=== PATIENT | male | born 1990 | race Caucasian/White ===

== ENCOUNTER 2018-07-15 17:10 | Inpatient (IN) | payer MEDICAID, SELFPAY ==
[2018-07-15 17:11] VITALS: BP 134/82; PULSE 115; RESP 16; TEMP 36.4; O2SAT 100; BMI 23.5
[2018-07-15 19:36] LABS: Absolute Lymphocyte Count 2.15 X10^3/ul (0.83-4.51); Absolute Neutrophil Count 8.3 X10^3/uL (2.0-7.7); Basophil# 0.01 X10^3/uL; Basophil% 0.1 % (0-1); Eosinophil# 0.01 X10^3/uL; Eosinophils% 0.1 % (0-5); Hematocrit 34.1 % (40-54); Hemoglobin 11.4 g/dl (13.0-16.5); Lymphocyte # 2.15 X10^3/ul (4.0); Lymphocyte % 18.1 % (19-41); Mean Corp Hgb Conc 33.4 g/gl (32-36); Mean Corpuscular Hgb 27.1 pg (27.0-32.0); Mean Corpuscular Volume 81.2 fL (80-94); Mean Platelet Vol. 8.5 fl (6.2-12.0); Monocyte# 1.34 X10^3/uL; Monocyte% 11.3 % (0-10); Neutrophil # 8.33 X10^3/uL (2.7-7.7); Neutrophil % 70.2 % (47-70); POSITIVE COUNT NO; POSITIVE DIFFERENTIAL NO; POSITIVE MORPHOLOGY NO; Platelet Count 244 K/mm3 (150-450); RBC Distribution Width CV 13.6 % (11.6-14.6); RBC Distribution Width SD 39.9 fl (35.1-43.9); White Blood Count 11.9 K/mm3 (4.4-11.0)
[2018-07-15 19:53] LABS: Amphetamine Urine VISTA NEGATIVE (<1000 ng/mL); Barbiturate Urine VISTA NEGATIVE (< 200 ng/mL); Benzodiazepine Urine VISTA NEGATIVE (< 200 ng/mL); Cocaine Urine VISTA NEGATIVE (< 300 ng/mL); Ecstacy Urine VISTA POSITIVE (< 500 ng/mL); Methadone Urine VISTA NEGATIVE (< 300 ng/mL); PCP Urine VISTA NEGATIVE (< 25 ng/mL); THC Urine VISTA NEGATIVE (< 50 ng/mL); Vista UDS pH Range 6
[2018-07-15 20:00] LABS: Alcohol, Blood (Medical)-Serum < 3.0 mg/dL
[2018-07-15 20:08] VITALS: BP 114/73; PULSE 94; RESP 18; O2SAT 99
--- NOTE | 2018-07-15 20:09 | NURSING ---
LAB CALLED TO REQUEST THAT THEY TRY TO DRAW THE CHEMISTRY TUBE ON THE PATIENT WE WERE UNABLE TO GET IT. DR. RAMÍREZ IS AT THE BEDSIDE DOING THE NEW VISION SURVEY. HIS PARENTS ARE PRESENT.
--- NOTE | 2018-07-15 20:27 | ED.VISSUMM ---
- ER Visit Summary Date of Service: 07/15/18 Chief Complaint: Heroin withdrawal History of Present Illness: The patient is a 27 M presenting with heroin withdrawal. Patient had his last use of heroin 24 hours ago. He typically uses 1 g per day. He has been using for the past 3 months. Prior to that he was detoxed at [facility]. He has a history of heroin and opiate pill use. He states that he is using heroin only now. He denies alcohol use. Denies medical problems. He complains of vomiting, diarrhea, restless legs. Physical Examination: Vitals are stable. Patient is afebrile. Alert no acute distress. HEENT exam dry mucous membranes Neck is supple. Lungs are clear and equal bilaterally. Heart is regular rate and rhythm. Abdomen is soft nontender nondistended. No guarding or rebound Extremities are unremarkable. Skin is warm and dry. No focal neurologic deficit. Remainder of exam is unremarkable. Emergency Department Course and Treatment: Patient is given IV fluids, Zofran. His CIWA-B score is 54. Will discuss with the hospitalist for observation. Disposition: Admission Impression: Heroin withdrawal This note was generated with [employer] dictation software. It may contain incorrect words, spelling, and punctuation that were not noted in review of the chart prior to signing ED Disposition - Plan for ED Patient: Chief Complaint: Substance Abuse Referrals: Rosa Maria Glass,Out of [Primary Care Provider] -
[2018-07-15 20:29] VITALS: BP 114/73; PULSE 94; RESP 18; O2SAT 99
--- NOTE | 2018-07-15 20:31 | HP.PCM_ITS ---
Problem List (1) Heroin withdrawal Status: Acute History of Present Illness Date of Admission: 07/15/18 Chief Complaint: Heroine withdrawal The patient is a 27 year old M with a significant history of depression, anxiety , and heroine dependence who underwent detoxification at 3 months ago presents with symptoms of heroine withdrawal that started on the same day of admission. His withdrawal symptoms include chills, vomiting, diarrhea, abdominal cramps, restless legs, anxiety, clamminess, insomnia and irritability Also patient smokes 2 packs tobacco about half pack per day for many years. He denied use of other substances however methamphetamine was found in his drug screen. He believes methamphetamine might have been mixed with his drug of choice, heroin. Past Medical History Allergies No Known Allergies Allergy (Verified 07/15/18 17:11) Home Medications: Ambulatory Orders Medication Instructions Recorded Bupropion HCl [Bupropion HCl Sr] 150 mg PO DAILY 07/15/18 Duloxetine HCl 60 mg PO DAILY 07/15/18 Gabapentin [Neurontin] 600 mg PO BIDCM 07/15/18 Ibuprofen 600 mg PO Q8H PRN PRN 07/15/18 Methylprednisolone [Medrol] See Taper PO DAILY 07/15/18 Surgical History: no surgical history Lives: With Family Smoking Status: Current every day smoker Tobacco Use: Cigarettes - *Family History Maternal History Items: No pertinent history Paternal History Items: No pertinent history Review of Systems Constitutional: Denies: Chills, Fever, Weight Change Eyes: Denies: Blurred vision, Pain HEENT: Reports: Head Aches. Denies: Sinus Congestion, Sinus Drainage Cardiovascular: Denies: Chest Pain, Palpitations Respiratory: Denies: Cough, Shortness of breath at rest, Sputum production Gastrointestinal: Reports: Abdominal Pain, Diarrhea, Vomiting Genitourinary: Denies: Dysuria Musculoskeletal: Denies: Joint Pain, Joint Tenderness Skin: Denies: Rash, Wounds Neurological: Denies: Numbness, Tingling, Focal weakness Psychiatric: Reports: Anxiety, Depression. Denies: Homicidal Ideations, Suicidal Ideations Hematologic/ Lymphatic: Denies: Easy Bruising, Easy Bleeding VTE Information - Inpt Only VTE Present on Admission: No VTE Mechan Device Prophylaxis: None VTE Pharm Prophylaxis ordered?: No Patient Problems: Active and Suspected Problems Heroin withdrawal (Acute) - Physical Exam General: Alert, Oriented x3, Cooperative HEENT: Atraumatic, PERRLA, EOMI, Normocephalic Neck: Supple, No JVD, Negative Carotid Bruits Lungs: Clear to auscultation, Normal air movement Cardiovascular: Regular rate, No murmurs Abdomen: Bowel Sounds Present, Soft, Non Tender Extremities: No clubbing Skin: No rashes, No breakdown Musculoskeletal: No Tenderness to Palpation of Joints or Extremities Neurological: Cranial nerves II-XII grossly intact Psych/Mental Status: Anxious Vital Signs Temp Pulse Resp BP Pulse Ox 97.6 F L 94 18 114/73 99 07/15/18 17:11 07/15/18 20:29 07/15/18 20:29 07/15/18 20:29 07/15/18 20:29 Oxygen Delivery Method Room Air Weight: 68.039 kg Body Mass Index (BMI) 23.5 Laboratory Tests Past 24 Hrs 07/15/18 07/15/18 07/15/18 19:15 19:29 19:29 WBC 11.9 H RBC 4.20 L Hgb 11.4 L Hct 34.1 L MCV 81.2 MCH 27.1 MCHC 33.4 RDW 13.6 RDW Differential 39.9 Plt Count 244 MPV 8.5 Immature Gran % (Auto) 0.200 Neut % (Auto) 70.2 H Lymph % (Auto) 18.1 L [place] % (Auto) 11.3 H Eos % (Auto) 0.1 Baso % (Auto) 0.1 Absolute Neuts (auto) 8.3 H Absolute Lymphs (auto) 2.15 Total Counted Not Reportable Urine Opiates Screen NEGATIVE Urine Methadone Screen NEGATIVE Ur Barbiturates Screen NEGATIVE Ur Phencyclidine Scrn NEGATIVE Ur Amphetamines Screen NEGATIVE U Methamphetamin-MDMA POSITIVE H U Benzodiazepines Scrn NEGATIVE Urine Cocaine Screen NEGATIVE U Cannabinoids Screen NEGATIVE Ur Drug Screen Comment Ethyl Alcohol < 3.0 Assessment/Plan All Active Problems Heroin withdrawal (Acute) The patient is a 27 year old M with a significant history of tobacco abuse, depression, anxiety, and heroine dependence who underwent detoxification 3 months ago presents with symptoms of heroine withdrawal. Polysubstance dependence and withdrawal Patient's smokes tobacco; uses heroine; and methamphetamine was found on drug screen Patient was counseled See below Heroine dependence with withdrawal CIWA screened for heroine at emergency department showed severe withdrawal Narcotic withdrawal protocol with Bentyl, methocarbamol, Mirapex, hydroxyzine and buprenorphine. Melatonin for insomnia. Imodium for diarrhea. Tobacco abuse Nicotine patch ordered. Costochondritis Patient reported that he was diagnosed with costal chondritis 2 days ago and was started on Medrol Dosepak and as needed ibuprofen A Medrol Dosepak and as needed ibuprofen continued. Continue Medrol dose started outpatient. Depression and anxiety Home Cymbalta and Wellbutrin continued DVT prophylaxis Low risk. Ambulate Code Visit Inpatient E&M: 41263 Init Hosp L3
[2018-07-15] MEDS: Ondansetron 4 MG/2 ML Vial IV (21:16)
[2018-07-15] MEDS: 0.9% Normal Saline 1,000 ML 999 ML IV (21:16)
[2018-07-15 21:21] LABS: Anion Gap 9 (5-15); BUN 16 mg/dL (7-18); BUN/Creat Ratio 19.3 RATIO (10-20); Calcium,Total 9.2 mg/dL (8.5-10.1); Chloride 103 mmol/L (98-107); Creatinine, Serum 0.83 mg/dL (0.70-1.30); EST Glomerular Filtration Rate 120 mL/min (>60); Est Glom Filt Rate - Afr Amer 145 mL/min (>60); Glucose 93 mg/dL (74-106); Potassium 4.8 mmol/L (3.5-5.1); Sodium Level 137 mmol/L (136-145)
[2018-07-15 22:05] VITALS: BMI 23.0
[2018-07-15 22:08] VITALS: BMI 23.0
[2018-07-15 22:14] VITALS: BP 125/76; PULSE 56; RESP 16; TEMP 36.8
[2018-07-15] MEDS: Buprenorphine HCl 2 MG TAB.SUBL SL (22:32)
[2018-07-15] MEDS: MethylPREDNISolone DosePak 4 MG BOX PO (22:32)
[2018-07-15] MEDS: Gabapentin 100 MG Capsule 200 MG PO (22:35)
[2018-07-15] MEDS: hydrOXYzine PAM 25 MG Capsule 50 MG PO (22:35)
[2018-07-15] MEDS: MELATONIN 3 MG TABLET PO (22:35)
[2018-07-15] MEDS: Pramipexole Di-HCl 0.25 MG Tablet PO (22:35)
[2018-07-15 22:46] VITALS: O2SAT 95
[2018-07-16] VITALS (8 sets, daily range): BP systolic 97–125; BP diastolic 65–84; PULSE 64–96; RESP 16–18; TEMP 36.6–37.3; O2SAT 98–100
[2018-07-16] MEDS: Loperamide 2 MG Capsule 4 MG PO (00:20)
[2018-07-16] MEDS: Buprenorphine HCl 2 MG TAB.SUBL SL ×3 (06:18→22:05)
[2018-07-16] MEDS: hydrOXYzine PAM 25 MG Capsule 50 MG PO ×2 (06:18→14:10)
[2018-07-16] MEDS: Methocarbamol 750 MG Tablet PO ×2 (06:18→18:16)
[2018-07-16 06:30] LABS: Absolute Neutrophil Count 6.4 X10^3/uL (2.0-7.7); Basophil# 0.01 X10^3/uL; Basophil% 0.1 % (0-1); Hematocrit 38.2 % (40-54); Hemoglobin 12.7 g/dl (13.0-16.5); Lymphocyte % 16.4 % (19-41); Mean Corp Hgb Conc 33.2 g/gl (32-36); Mean Corpuscular Hgb 27.1 pg (27.0-32.0); Mean Corpuscular Volume 81.4 fL (80-94); Mean Platelet Vol. 8.6 fl (6.2-12.0); Monocyte# 0.71 X10^3/uL; Monocyte% 8.3 % (0-10); Neutrophil % 75.1 % (47-70); Platelet Count 224 K/mm3 (150-450); RBC Distribution Width CV 13.8 % (11.6-14.6); Red Blood Count 4.69 M/mm3 (4.6-6.2); White Blood Count 8.5 K/mm3 (4.4-11.0)
[2018-07-16 06:31] LABS: POSITIVE COUNT NO; POSITIVE DIFFERENTIAL NO; POSITIVE MORPHOLOGY NO
[2018-07-16 07:04] LABS: Anion Gap 8 (5-15); BUN 13 mg/dL (7-18); Calcium,Total 8.8 mg/dL (8.5-10.1); Chloride 107 mmol/L (98-107); Creatinine, Serum 0.68 mg/dL (0.70-1.30); EST Glomerular Filtration Rate 149 mL/min (>60); Est Glom Filt Rate - Afr Amer 181 mL/min (>60); Estimated Creatinine Clearance 155.26 ml/min; Glucose 118 mg/dL (74-106); Potassium 4.2 mmol/L (3.5-5.1); Sodium Level 138 mmol/L (136-145)
[2018-07-16] MEDS: Gabapentin 100 MG Capsule 200 MG PO ×2 (08:43→16:38)
[2018-07-16] MEDS: MethylPREDNISolone DosePak 4 MG BOX PO ×4 (08:44→22:08)
[2018-07-16] MEDS: DULoxetine Hcl 60 MG Capsule PO (08:45)
[2018-07-16] MEDS: buPROPion (SR) 150 MG Tablet.SA PO (08:46)
[2018-07-16] MEDS: Ibuprofen 600 MG Tablet PO (10:13)
[2018-07-16] MEDS: Loperamide 2 MG Capsule PO (10:13)
[2018-07-16] MEDS: Pramipexole Di-HCl 0.25 MG Tablet PO (10:13)
--- NOTE | 2018-07-16 10:39 | CASEMGMT ---
Social work Note Charge Nurse Ellie updated this worker that ADINA is going to see pt. Berna Asencio PARKS RECREATION DIRECTOR, SET UP [employer]
--- NOTE | 2018-07-16 10:48 | PCM.PN.HOSP ---
Patient Problems: Active and Suspected Problems Heroin withdrawal (Acute) Subjective: still with chest pain. Admits to daily IV heroin abuse. Denies any intentional methamphetamine abuse. Still with chest pain. Vitals/I&O's: Vital Signs Temp Pulse Resp BP Pulse Ox 36.8 C 96 16 109/70 100 07/16/18 10:03 07/16/18 10:14 07/16/18 10:14 07/16/18 10:03 07/16/18 10:03 Oxygen Delivery Method Room Air Weight: 66.7 kg Body Mass Index (BMI) 23.0 General: Alert, No apparent distress HEENT: Atraumatic, Normocephalic Oral: Moist Mucosa, No Gingival or Mucosal Lesions/ Ulcerations Neck: No Nodes, Thyroid Normal Size and Texture Lungs: Clear to auscultation, Normal air movement, No rhonchi, No wheeze Cardiovascular: Regular rate, Regular Rhythm, Normal S1, Normal S2, No murmurs Abdomen: Bowel Sounds Present, Soft, Non Tender, Non-Distended, No Hepato-splenomegaly Extremities: No edema, No Calf Tenderness Psych/Mental Status: Normal Affect, Appropriate Microbiology Past 72 Hours 07/16/18 07:20 Stool C. difficile DNA Amplification - Final Laboratory Results 07/16/18 05:50: WBC 8.5, RBC 4.69, Hgb 12.7 L, Hct 38.2 L, MCV 81.4, MCH 27.1, MCHC 33.2, RDW 13.8, RDW Differential 41.0, Plt Count 224, MPV 8.6, Immature Gran % (Auto) 0.100, Neut % (Auto) 75.1 H, Lymph % (Auto) 16.4 L, [place] % (Auto) 8.3, Eos % (Auto) 0.0, Baso % (Auto) 0.1, Absolute Neuts (auto) 6.4, Absolute Lymphs (auto) 1.40, Total Counted Not Reportable 07/16/18 05:50: Sodium 138, Potassium 4.2, Chloride 107, Carbon Dioxide 23.0, Anion Gap 8, BUN 13, Creatinine 0.68 L, Estim Creat Clear Calc 155.26, Est GFR (MDRD) Af Amer 181, Est GFR (MDRD) Non-Af 149, BUN/Creatinine Ratio 19.0, Glucose 118 H, Calcium 8.8 Current Medications Bisacodyl (Dulcolax) 5 mg PO DAILY PRN PRN PRN Reason: Constipation Buprenorphine HCl (Buprenorphine Hcl) 4 mg SL Q8H [facility] PRN Reason: Taper Stop: 07/19/18 01:59 Last Admin: 07/16/18 06:18 Dose: 4 mg Bupropion HCl (Wellbutrin Sr (150mg Tablets)) 150 mg PO DAILY [facility] Last Admin: 07/16/18 08:46 Dose: 150 mg Dicyclomine HCl (Bentyl) 20 mg PO Q6H PRN PRN PRN Reason: Abdomnial Discomfort Duloxetine HCl (Cymbalta) 60 mg PO DAILY [facility] Last Admin: 07/16/18 08:45 Dose: 60 mg [facility] Last Admin: 07/16/18 08:43 Dose: 200 mg Hydroxyzine Pamoate (Vistaril Pamoate Capsule) 50 mg PO Q6H PRN PRN PRN Reason: Mild Anxiety Last Admin: 07/16/18 06:18 Dose: 50 mg Ibuprofen (Motrin) 600 mg PO Q6H PRN PRN PRN Reason: pain Last Admin: 07/16/18 10:13 Dose: 600 mg Loperamide HCl (Imodium) 2 mg PO PRN PRN PRN Reason: loose bowel movement Last Admin: 07/16/18 10:13 Dose: 2 mg Magnesium Hydroxide (Milk Of Magnesia) 30 ml PO DAILY PRN PRN PRN Reason: Constipation Melatonin (Melatonin) 3 mg PO QHS [facility] Last Admin: 07/15/18 22:35 Dose: 3 mg Methocarbamol (Methocarbamol) 750 mg PO Q6H PRN PRN PRN Reason: Muscle Aches Last Admin: 07/16/18 06:18 Dose: 750 mg Methylprednisolone (Medrol Dosepak) 4 mg PO 0800,1200,1700,2200 [facility] PRN Reason: Taper Stop: 07/19/18 08:59 Last Admin: 07/16/18 08:44 Dose: 4 mg Nicotine (Nicoderm Cq (Pbkc)) 14 mg TRANSDERM. DAILY [facility] Last Admin: 07/16/18 08:46 Dose: 14 mg Nutritional Formula (Lactose Free) (Ensure Enlive) 120 ml PO 4X/DAY [facility] Last Admin: 07/16/18 08:49 Dose: 120 ml Pramipexole Dihydrochloride (Mirapex) 0.25 mg PO Q12H PRN PRN PRN Reason: Restless Legs Last Admin: 07/16/18 10:13 Dose: 0.25 mg Medical Necessity - Tobacco Use Smoking Status: Current every day smoker Tobacco Use: Cigarettes Assessment/Plan All Active Problems Heroin withdrawal (Acute) 1. Acute heroin withdrawal continue with Subutex taper continue with other PRN medications for other somatic complaints. 2. costochondritis Ibuprofen 800mg TID for 5 days. Will add PPI for GI protection. 3. Depression takes Wellbutrin, which is likely why his screen is positive for methamphetamines/MDMA (i.e., false positive) 4. Chronic back pain Pt states he is prescribed gabapentin for back pain Reviewed [facility], and he [place] Gabapentin is known to accentuate the high from opiates. I called Dr. Vergara's office as a courtesy, but was kept on hold. Code Visit Inpatient E&M: 82674 Subs Hosp L2
--- NOTE | 2018-07-16 10:53 | PN_ITS ---
Patient Problems: Active and Suspected Problems Heroin withdrawal (Acute) Subjective: still with chest pain. Admits to daily IV heroin abuse. Denies any intentional methamphetamine abuse. Still with chest pain. Vitals/I&O's: Vital Signs Temp Pulse Resp BP Pulse Ox 36.8 C 96 16 109/70 100 07/16/18 10:03 07/16/18 10:14 07/16/18 10:14 07/16/18 10:03 07/16/18 10:03 Oxygen Delivery Method Room Air Weight: 66.7 kg Body Mass Index (BMI) 23.0 General: Alert, No apparent distress HEENT: Atraumatic, Normocephalic Oral: Moist Mucosa, No Gingival or Mucosal Lesions/ Ulcerations Neck: No Nodes, Thyroid Normal Size and Texture Lungs: Clear to auscultation, Normal air movement, No rhonchi, No wheeze Cardiovascular: Regular rate, Regular Rhythm, Normal S1, Normal S2, No murmurs Abdomen: Bowel Sounds Present, Soft, Non Tender, Non-Distended, No Hepato- splenomegaly Extremities: No edema, No Calf Tenderness Psych/Mental Status: Normal Affect, Appropriate Microbiology Past 72 Hours 07/16/18 07:20 Stool C. difficile DNA Amplification - Final Laboratory Results 07/16/18 05:50: WBC 8.5, RBC 4.69, Hgb 12.7 L, Hct 38.2 L, MCV 81.4, MCH 27.1, MCHC 33.2, RDW 13.8, RDW Differential 41.0, Plt Count 224, MPV 8.6, Immature Gran % (Auto) 0.100, Neut % (Auto) 75.1 H, Lymph % (Auto) 16.4 L, [place] % (Auto) 8.3, Eos % (Auto) 0.0, Baso % (Auto) 0.1, Absolute Neuts (auto) 6.4, Absolute Lymphs (auto) 1.40, Total Counted Not Reportable 07/16/18 05:50: Sodium 138, Potassium 4.2, Chloride 107, Carbon Dioxide 23.0, Anion Gap 8, BUN 13, Creatinine 0.68 L, Estim Creat Clear Calc 155.26, Est GFR ( MDRD) Af Amer 181, Est GFR (MDRD) Non-Af 149, BUN/Creatinine Ratio 19.0, Glucose 118 H, Calcium 8.8 Current Medications Bisacodyl (Dulcolax) 5 mg PO DAILY PRN PRN PRN Reason: Constipation Buprenorphine HCl (Buprenorphine Hcl) 4 mg SL Q8H [facility] PRN Reason: Taper Stop: 07/19/18 01:59 Last Admin: 07/16/18 06:18 Dose: 4 mg Bupropion HCl (Wellbutrin Sr (150mg Tablets)) 150 mg PO DAILY [facility] Last Admin: 07/16/18 08:46 Dose: 150 mg Dicyclomine HCl (Bentyl) 20 mg PO Q6H PRN PRN PRN Reason: Abdomnial Discomfort Duloxetine HCl (Cymbalta) 60 mg PO DAILY [facility] Last Admin: 07/16/18 08:45 Dose: 60 mg [facility]) [facility] Last Admin: 07/16/18 08:43 Dose: 200 mg Hydroxyzine Pamoate (Vistaril Pamoate Capsule) 50 mg PO Q6H PRN PRN PRN Reason: Mild Anxiety Last Admin: 07/16/18 06:18 Dose: 50 mg Ibuprofen (Motrin) 600 mg PO Q6H PRN PRN PRN Reason: pain Last Admin: 07/16/18 10:13 Dose: 600 mg Loperamide HCl (Imodium) 2 mg PO PRN PRN PRN Reason: loose bowel movement Last Admin: 07/16/18 10:13 Dose: 2 mg Magnesium Hydroxide (Milk Of Magnesia) 30 ml PO DAILY PRN PRN PRN Reason: Constipation Melatonin (Melatonin) 3 mg PO QHS [facility] Last Admin: 07/15/18 22:35 Dose: 3 mg Methocarbamol (Methocarbamol) 750 mg PO Q6H PRN PRN PRN Reason: Muscle Aches Last Admin: 07/16/18 06:18 Dose: 750 mg Methylprednisolone (Medrol Dosepak) 4 mg PO 0800,1200,1700,2200 [facility] PRN Reason: Taper Stop: 07/19/18 08:59 Last Admin: 07/16/18 08:44 Dose: 4 mg Nicotine (Nicoderm Cq (Pbkc)) 14 mg TRANSDERM. DAILY [facility] Last Admin: 07/16/18 08:46 Dose: 14 mg Nutritional Formula (Lactose Free) (Ensure Enlive) 120 ml PO 4X/DAY [facility] Last Admin: 07/16/18 08:49 Dose: 120 ml Pramipexole Dihydrochloride (Mirapex) 0.25 mg PO Q12H PRN PRN PRN Reason: Restless Legs Last Admin: 07/16/18 10:13 Dose: 0.25 mg Medical Necessity - Tobacco Use Smoking Status: Current every day smoker Tobacco Use: Cigarettes Assessment/Plan All Active Problems Heroin withdrawal (Acute) 1. Acute heroin withdrawal * continue with Subutex taper * continue with other PRN medications for other somatic complaints. 2. costochondritis * Ibuprofen 800mg TID for 5 days. Will add PPI for GI protection. 3. Depression * takes Wellbutrin, which is likely why his screen is positive for methamphetamines/MDMA (i.e., false positive) 4. Chronic back pain * Pt states he is prescribed gabapentin for back pain * Reviewed [facility], and he receives Rx from Dr. Vergara in [place] * Gabapentin is known to accentuate the high from opiates. * I called Dr. Vergara's office as a courtesy, but was kept on hold. Code Visit Inpatient E&M: 61954 Subs Hosp L2
[2018-07-16] MEDS: Ibuprofen 400 MG Tablet 800 MG PO ×2 (14:10→22:16)
[2018-07-16] MEDS: MELATONIN 3 MG TABLET PO (22:06)
[2018-07-16] MEDS: traZODone 50 MG Tablet PO (22:07)
[2018-07-17] MEDS: Pramipexole Di-HCl 0.25 MG Tablet PO ×2 (05:58→22:21)
[2018-07-17] MEDS: Ibuprofen 400 MG Tablet 800 MG PO ×3 (05:58→22:20)
[2018-07-17] MEDS: Buprenorphine HCl 2 MG TAB.SUBL SL ×2 (05:58→13:17)
[2018-07-17 05:59] VITALS: BP 118/81; PULSE 80; RESP 18; TEMP 36.7
[2018-07-17 07:57] VITALS: O2SAT 97
[2018-07-17 09:13] VITALS: BP 118/64; PULSE 87; RESP 18; TEMP 36.9
[2018-07-17] MEDS: Gabapentin 100 MG Capsule 200 MG PO (09:20)
[2018-07-17] MEDS: hydrOXYzine PAM 25 MG Capsule 50 MG PO ×2 (09:20→19:53)
[2018-07-17] MEDS: buPROPion (SR) 150 MG Tablet.SA PO (09:21)
[2018-07-17] MEDS: DULoxetine Hcl 60 MG Capsule PO (09:21)
[2018-07-17] MEDS: Pantoprazole Sodium 40 MG Tablet PO (09:21)
[2018-07-17] MEDS: MethylPREDNISolone DosePak 4 MG BOX PO ×3 (09:22→22:20)
--- NOTE | 2018-07-17 10:36 | PN_ITS ---
Patient Problems: Active and Suspected Problems Heroin withdrawal (Acute) Subjective: Feeling better. Still with chest pain. Vitals/I&O's: Vital Signs Temp Pulse Resp BP Pulse Ox 36.9 C 87 18 118/64 97 07/17/18 09:13 07/17/18 09:13 07/17/18 09:13 07/17/18 09:13 07/17/18 07:57 Oxygen Delivery Method Room Air Weight: 66.7 kg Body Mass Index (BMI) 23.0 Intake and Output for Last 24 Hours 07/15/18 07/16/18 07/17/18 23:59 23:59 23:59 Intake Total 500 / 500 Balance 500 / 500 General: Alert, No apparent distress HEENT: Atraumatic, Normocephalic Oral: Moist Mucosa, No Gingival or Mucosal Lesions/ Ulcerations Neck: No Nodes, Thyroid Normal Size and Texture Lungs: Clear to auscultation, Normal air movement, No rhonchi, No wheeze Cardiovascular: Regular rate, Regular Rhythm, Normal S1, Normal S2, No murmurs Abdomen: Bowel Sounds Present, Soft, Non Tender, Non-Distended, No Hepato- splenomegaly Extremities: No edema, No Calf Tenderness Skin: No rashes, No breakdown Psych/Mental Status: Normal Affect, Appropriate Microbiology Past 72 Hours 07/16/18 07:20 Stool C. difficile DNA Amplification - Final Current Medications Bisacodyl (Dulcolax) 5 mg PO DAILY PRN PRN PRN Reason: Constipation Buprenorphine HCl (Buprenorphine Hcl) 2 mg SL Q8H [facility] PRN Reason: Taper Stop: 07/19/18 01:59 Last Admin: 07/17/18 05:58 Dose: 2 mg Bupropion HCl (Wellbutrin Sr (150mg Tablets)) 150 mg PO DAILY [facility] Last Admin: 07/17/18 09:21 Dose: 150 mg Dicyclomine HCl (Bentyl) 20 mg PO Q6H PRN PRN PRN Reason: Abdomnial Discomfort Duloxetine HCl (Cymbalta) 60 mg PO DAILY [facility] Last Admin: 07/17/18 09:21 Dose: 60 mg [facility]) [facility] Last Admin: 07/17/18 09:20 Dose: 200 mg Hydroxyzine Pamoate (Vistaril Pamoate Capsule) 50 mg PO Q6H PRN PRN PRN Reason: Mild Anxiety Last Admin: 07/17/18 09:20 Dose: 50 mg Ibuprofen (Motrin) 800 mg PO TID [facility] Last Admin: 07/17/18 05:58 Dose: 800 mg Loperamide HCl (Imodium) 2 mg PO PRN PRN PRN Reason: loose bowel movement Last Admin: 07/16/18 10:13 Dose: 2 mg Magnesium Hydroxide (Milk Of Magnesia) 30 ml PO DAILY PRN PRN PRN Reason: Constipation Melatonin (Melatonin) 3 mg PO QHS [facility] Last Admin: 07/16/18 22:06 Dose: 3 mg Methocarbamol (Methocarbamol) 750 mg PO Q6H PRN PRN PRN Reason: Muscle Aches Last Admin: 07/16/18 18:16 Dose: 750 mg Methylprednisolone (Medrol Dosepak) 4 mg PO 0800,1200,2200 [facility] PRN Reason: Taper Stop: 07/19/18 08:59 Last Admin: 07/17/18 09:22 Dose: 4 mg Nicotine (Nicoderm Cq (Pbkc)) 14 mg TRANSDERM. DAILY [facility] Last Admin: 07/17/18 09:20 Dose: 14 mg Nutritional Formula (Lactose Free) (Ensure Enlive) 120 ml PO 4X/DAY [facility] Last Admin: 07/17/18 09:20 Dose: Not Given Pantoprazole Sodium (Protonix) 40 mg PO DAILY [facility] Last Admin: 07/17/18 09:21 Dose: 40 mg Pramipexole Dihydrochloride (Mirapex) 0.25 mg PO Q12H PRN PRN PRN Reason: Restless Legs Last Admin: 07/17/18 05:58 Dose: 0.25 mg Trazodone HCl (Desyrel) 50 mg PO QHS [facility] Last Admin: 07/16/18 22:07 Dose: 50 mg Medical Necessity - Tobacco Use Smoking Status: Current every day smoker Tobacco Use: Cigarettes Assessment/Plan All Active Problems Heroin withdrawal (Acute) 1. Acute heroin withdrawal * continue with Subutex taper * continue with other PRN medications for other somatic complaints. * last day of treatment is 07/18 2. costochondritis * Ibuprofen 800mg TID for 5 days. Will add PPI for GI protection. 3. Depression * takes Wellbutrin, which is likely why his screen is positive for methamphetamines/MDMA (i.e., false positive) 4. Chronic back pain * Pt states he is prescribed gabapentin for back pain * Reviewed [facility], and he receives Rx from Dr. Vergara in [place] * Gabapentin is known to accentuate the high from opiates. * I called Dr. Vergara's office as a courtesy, but was kept on hold. * would advise caution about Gabapentin Code Visit Inpatient E&M: 92525 Subs Hosp L2
[2018-07-17 13:16] VITALS: BP 130/79; PULSE 76; RESP 16; TEMP 36.4
[2018-07-17 19:40] VITALS: BP 124/82; PULSE 85; RESP 16; TEMP 37.1
[2018-07-17] MEDS: MELATONIN 3 MG TABLET PO (22:20)
[2018-07-17] MEDS: traZODone 50 MG Tablet PO (22:21)
[2018-07-18 01:54] VITALS: BP 112/74; PULSE 77; RESP 16; TEMP 36.6
[2018-07-18] MEDS: Buprenorphine HCl 2 MG TAB.SUBL SL (01:57)
[2018-07-18] MEDS: Ibuprofen 400 MG Tablet 800 MG PO (05:14)
[2018-07-18 08:05] VITALS: BP 131/85; PULSE 70; RESP 14; TEMP 36.7
[2018-07-18] MEDS: MethylPREDNISolone DosePak 4 MG BOX PO (08:13)
[2018-07-18] MEDS: buPROPion (SR) 150 MG Tablet.SA PO (08:15)
[2018-07-18] MEDS: hydrOXYzine PAM 25 MG Capsule 50 MG PO (08:15)
[2018-07-18] MEDS: Pantoprazole Sodium 40 MG Tablet PO (08:16)
[2018-07-18] MEDS: DULoxetine Hcl 60 MG Capsule PO (08:16)
--- NOTE | 2018-07-18 09:30 | DCINST_ITS ---
- Discharge Diagnoses Current Active Problems: Current Active and Chronic Problems Heroin withdrawal (Acute) You will use the following diet at home:: No restrictions Your food should be the consistency of: Regular Allergies/Adverse Reactions: Allergies cephalexin [From Keflex] Allergy (Verified 07/15/18 21:18) Hives Medications to take at Discharge Bupropion HCl [Bupropion HCl Sr] 150 mg PO DAILY 07/15/18 Duloxetine HCl 60 mg PO DAILY 07/15/18 Ibuprofen [Motrin] 800 mg PO TID tablet 07/18/18 Omeprazole 20 mg PO DAILY #3 tab 07/18/18 The following prescriptions were given: Omeprazole 20 mg PO DAILY #3 tab. Primary Care Physician: Rosa Maria Doctor,Out of [Primary Care Provider] - Test Results: Test results from this visit will be discussed in further detail at your follow- up appointment, if applicable. Please Follow Up With: inpatient addiction rehab When: 07/20/18 Proposed Discharge Date: 07/18/18
--- NOTE | 2018-07-18 09:30 | PCM.DC.SUM ---
Discharge Date and Diagnosis - Problem List Patient Problems: Active and Suspected Problems Heroin withdrawal (Acute) Date of Admission: 07/15/18 Date of Discharge: 07/18/18 - Primary Discharge Diagnosis Active and Suspected Problems Heroin withdrawal (Acute) Hospital Course and Treatment Operations: None Procedures: None Summary of Care Provided: The patient is a 27 year old M presents voluntarily seeking withdrawal treatment for heroin withdrawal. Patient was started on the Subutex taper as well as additional indications for assistance. Care was also facilitated by Lito Nathan. Lito Nathan was able to contact the facility called [facility] who could not take patient on inpatient basis but currently her capacity and likely would not have any beds open up until the . The plan for the patient to go home for the weekend before going to that facility, presuming they have beds available. They did advise that the patient stop his gabapentin. Patient was not receiving gabapentin for chronic back pain through Dr. Vergara. I did attempt to contact his physician to notify him of the prescribing of the gabapentin for a heroin addict. But I was unable to get a hold of him. Would not advise any additional gabapentin prescription for this patient. Physical exam: Patient is no acute distress and afebrile. Patient did shave his head from yesterday. [] Discharge Diet: No Restrictions Discharge Activity: Return to Normal Activity Home Medications: Medications to take at Discharge Bupropion HCl [Bupropion HCl Sr] 150 mg PO DAILY 07/15/18 Duloxetine HCl 60 mg PO DAILY 07/15/18 Ibuprofen [Motrin] 800 mg PO TID tablet 07/18/18 Omeprazole 20 mg PO DAILY #3 tab 07/18/18 Following Prescrptions Were Given to Patient: Omeprazole 20 mg PO DAILY #3 tab Primary Care Physician: Rosa Maria Doctor,Out of [Primary Care Provider] - Please Follow Up With: inpatient addiction rehab - [facility] When: 07/20/18 Disposition: Home Minutes spent on discharge:: 28 Patient Condition:: Good Medical Necessity - Tobacco Use Smoking Status: Current every day smoker Tobacco Use: Cigarettes Meaningful Use Info Meaningful Use Diagnoses (Choose all that apply): None applicable Code Visit Inpatient E&M: 24232 Disch Hosp
== END 2018-07-18 12:00 | disposition home or self-care (01) | DRG 435 ==
LOC: ED 20:23 → MS3 21:09
PROVIDERS: Admitting Provider Hospitalist; Emergency Provider Emergency Medicine
DX: F11.23 Opioid dependence with withdrawal (principal); F17.210 Nicotine dependence, cigarettes, uncomplicated; F32.9 Major depressive disorder, single episode, unspecified; M94.0 Chondrocostal junction syndrome [Tietze]; G89.29 Other chronic pain; M54.9 Dorsalgia, unspecified
CPT/HCPCS: 36415; 80048; 80307; 80320; 85025; 87493; 97802; 99283; 99406; J7030; G0480; J2405